=== PATIENT | female | born 1970 | race Caucasian/White ===

== ENCOUNTER → 2017-03-27 | Day surgery (SDC) | payer BC ==
[~2017-03-27] VITALS: Ht 157.5 cm; Wt 71.7 kg
[~2017-03-27] MED LIST: BUPIVACAINE-EPI 0.5%-1:200000 50 ML VIAL. ONE; DEXAMETHASONE SOD PHOS 20 MG/5 ML VIAL. ONE; FAMOTIDINE 20 MG/2 ML VIAL ONE; FLUT9.9S NS; GLUCAGON,HUMAN RECOMBINANT 1 MG/ML VIAL. ONE; GLYCOPYRROLATE 1 MG/5 ML VIAL. ONE; HYDROmorphone 2 MG/ML VIAL IV PRN; IOHEXOL 300 MG/ML 50 ML VIAL. ONE; IV RINGERS,LACTATED 1000ML 1,000 ML IV SCH; KETOROLAC 30 MG/ML INJ FOR OR. INJ ONE; LEVO5TAB29 PO; LIDOCAINE 1% 1 ML SYRINGE. ID PRN; LIDOCAINE 2% PF Vial for OR 5 ML VIAL. ONE; MIDAZOLAM HCL/PF 2 MG/2 ML VIAL. ONE; MORPHINE SULFATE 2 MG/ML DISP.SYRIN. IV PRN; NEOSTIGMINE METHYLSULFATE 5 MG/5 ML SYRINGE. ONE; ONDANSETRON PF 4 MG/2 ML VIAL. IV PRN; ONDANSETRON PF 4 MG/2 ML VIAL. ONE; OXYC-323 PO; PROCHLORPERAZINE 10 MG/2 ML VIAL. IV PRN; PROPOFOL 20 ML IV ONE; ROCURONIUM 50 MG/5 ML VIAL. ONE; SCOPOLAMINE 1.5MG PATCH. TD ONE; SENN1TAB70 PO; SEVOFLURANE 61 TO 120 MINUTES. IH ONE; SURGICEL HEMOSTAT 4X8 EACH. ONE; fentaNYL PF VIAL 100 MCG/2 ML VIAL IV PRN; fentaNYL PF VIAL 100 MCG/2 ML VIAL ONE; oxyCODONE/APAP 5/325 1 TAB TABLET PO PRN
[2017-03-27 10:08] LABS: NEG OBC UR NEG; POS OBC UR POS
[2017-03-27 10:20] LABS: BASO % 1 % (0-3); EOS % 3 % (0-3); HEMOGLOBIN 14.2 g/dL (12.0-15.5); LYMPH # 1.3 x10^3/uL (1.0-4.8); LYMPH % 23 % (24-48); MEAN CORPUSCULAR HEMOGLOBIN 31 pg (25-35); MEAN CORPUSCULAR HGB CONC 36 g/dL (31-37); MEAN CORPUSCULAR VOLUME 88 fL (79-100); MONO % 9 % (0-9); NEUT % 65 % (31-73); PLATELET COUNT 254 x10^3/uL (140-400); RED BLOOD COUNT 4.54 x10^6/uL (3.50-5.40); RED CELL DISTRIBUTION WIDTH 12.4 % (11.5-14.5); WHITE BLOOD COUNT 5.7 x10^3/uL (4.0-11.0)
[2017-03-27 10:43] LABS: ALBUMIN 3.6 g/dL (3.4-5.0); CALCIUM 8.6 mg/dL (8.5-10.1); CREATININE 0.8 mg/dL (0.6-1.0); GFR 77.2; POTASSIUM 3.6 mmol/L (3.5-5.1); TOTAL BILIRUBIN 0.5 mg/dL (0.2-1.0)
--- NOTE | 2017-03-27 11:23 | RAD ---
Indication: Intraoperative cholangiogram. Fluoroscopy was provided for an intraoperative cholangiogram. 9 seconds of fluoroscopy time was utilized. 2 images were obtained. Images demonstrate contrast being injected via the cystic duct remnant. The intrahepatic and extrahepatic bile ducts are normal caliber. No filling defects are seen. Contrast does flow into the duodenum. Impression: No evidence of retained common duct stone.
--- NOTE | 2017-03-27 12:02 | DISCH ---
DISCHARGE INSTRUCTIONS Condition on Discharge Condition on Discharge: Stable Activity After Discharge Activity Instructions for Disc: Activity as tolerated, Avoid exertion Lifting Instructions after Dis: No heavy lifting Driving Instructions after Dis: Do not drive (3-4 days) Diet after Discharge Diet after Discharge: Regular Wound Incision Care Wound/Incision Care: Ice to area for comfort Other wound/incision instructi: january shower Thursday Follow-Up Follow up with: Ham next week JR BALDWIN MD Mar 27, 2017 12:02
--- NOTE | 2017-03-27 12:06 | PDOC ---
BRIEF OPERATIVE NOTE Date: Mar 27, 2017 Pre-Op Diagnosis biliary dyskinesia Post-Op Diagnosis same Procedure Performed l/s cholecystectomy with cholangiograms Surgeon Ham Acute Care Physical Therapist Anita CHENA Anesthesia Type: General Blood Loss 10cc IV Fluid 1000cc Specimens Obtained GB Findings supple GB with some omental adhesions, normal grams Complications none JR BALDWIN MD Mar 27, 2017 12:06
[2017-03-27 14:15] VITALS: BP 106/56
--- NOTE | 2017-03-30 14:30 | PATHOLOGY ---
PATHOLOGY REPORT * * * * * * * * FINAL DIAGNOSIS: Gallbladder, laparoscopic cholecystectomy: - Cholesterolosis, microscopic, focal. - Chronic cholecystitis. (JPM:dominick; 03/30/2017) COMMENT: There are no calculi identified within the gallbladder lumen or specimen container. There is no evidence of malignancy. (JPM:dominick; 03/30/2017) REPORT ELECTRONICALLY SIGNED BY: Vinay Paul M.D. DATE/TIME: 03/30/2017 14:30 * * * * * * * * GROSS PATHOLOGY: Received in formalin labeled "Pearl Hernandez, gallbladder and its contents," is a 7.3 x 2.8 x 1.7 cm, intact gallbladder with purple dias serosal surfaces. Opening the gallbladder reveals larson yellow red, velvety mucosa and an average wall thickness of 0.3 cm. Calculi are not present and no masses are noted grossly. Director [employer]or Relations sections from the body and fundus are submitted along with the proximal margin in cassette A1. (JPM; 03/27/17) INITIAL CPT CODE(S): A; 38724 Professional services performed [place] [address] Technical services performed by [facility] at [address] [place] [address] [address] [place] [address]. SPECIMEN(S) RECEIVED: A.Gallbladder and its contents CLINICAL HISTORY: Biliary dyskinesia PATIENT: PEARL HERNANDEZ /AGE: 805/15/1970 (Age: 46) PATIENT #: [id number] ALT CASE #: SPECIMEN COLLECTION DATE: 03/27/2017 SPECIMEN RECEIVED DATE: 03/27/2017 [facility] - [address] [place] [address] - PHONE: [phone] * * * END OF REPORT * * *
--- NOTE | 2017-04-07 14:07 | PDOC4 ---
Operative Note Operative Note Date of surgery: March 27, 2017 Preoperative diagnosis: Biliary dyskinesia Postop diagnosis: Same Procedure: Laparoscopic cholecystectomy with cholangiograms Surgeon: Ham Sims.: Anita OLMEDO Anesthesia: Gen. endotracheal IV fluids: 1 L EBL: 10 mL Indications: Pearl is a 46-year-old with postprandial epigastric and right upper quadrant abdominal pain. She is brought for cholecystectomy Operative findings: The gallbladder had some filmy omental adhesions along the undersurface. Liver was smooth and sharp. Cholangiograms were normal. Operative report: Patient brought to the operating suite and given a general endotracheal anesthetic. Abdomen prepped and draped in usual sterile fashion. An infraumbilical incision was infiltrated with local anesthetic, incised, and a 5 mm Visiport used to gain access into the abdominal cavity. Care was taken to avoid injury of abdominal contents. Pneumoperitoneum established, inspection carried out with results as noted above. With the table in reverse Trendelenburg and rolled to the left epigastric and midclavicular ports were placed under direct vision. An "alligator" grasper was placed at the lateral port site location. The gallbladder was retracted superior -lateral and omental adhesions were carefully taken down with blunt and cautery dissection taking care to avoid injury to the adjacent bowel. The cystic duct and cystic artery were identified. The duct was clipped on the gallbladder side. Cholangiograms were made. These were normal. In light of this the catheter was removed and the cystic duct clipped 3 taking care to avoid injury or compromise of the common duct. Cystic artery was clipped and divided and the gallbladder freed from the liver bed with cautery dissection and placed in an Endo Catch bag. Hemostasis was present. Table returned to level. Gall bladder delivered through the epigastric incision. Epigastric incision closed with interrupted 0 Vicryl suture. Intra- abdominal pressure decreased to 6 cm water. No bleeding from the epigastric closure, midclavicular port site after its removal, or lateral grasper after its removal. Abdomen decompressed. Camera slowly removed. No bleeding seen. Skin incisions closed with subcuticular 4-0 Monocryl and Steri-Strips. Sterile dressings applied. Patient awakened from her anesthetic and taken to the recovery room in satisfactory condition. JR BALDWIN MD Apr 07, 2017 14:07
== END | disposition home or self-care (01) ==
LOC: SURG 09:39
PROVIDERS: ATTEND Surgery
DX: K82.8 Other specified diseases of gallbladder (principal); E66.9 Obesity, unspecified; M19.90 Unspecified osteoarthritis, unspecified site; Z68.42 Body mass index [BMI] 45.0-49.9, adult; Z87.39 Personal history of other diseases of the musculoskeletal system and connective tissue; Z72.89 Other problems related to lifestyle; Z91.02 Food additives allergy status; Z91.011 Allergy to milk products
CPT/HCPCS: 36415; 47563; 74300; 80048; 81025; 82040; 82247; 85027; 88304; C1769; J0690; J0780; J1100; J1885; J2250; J2405; J2704; J2710; J3010; J3490; J7030; Q9967; S0028; J1610